=== PATIENT | male | born 1945 | race Caucasian/White ===

== ENCOUNTER → 2017-05-05 | Outpatient (CLI) | payer MEDICARE, OTHER ==
--- NOTE | 2017-05-05 13:27 | PCVCIMAG ---
EXAM: BILATERAL LOWER EXTREMITY ARTERIAL DUPLEX INDICATION: Peripheral Arterial Disease. Leg pain. FINDINGS: Right Leg: Satisfactory waveforms in the common femoral profunda femoral artery. Occlusion throughout the [place] superficial femoral artery and upper popliteal artery. 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 The mid and distal popliteal artery refills with no evidence of aneurysm. The posterior tibial arteries occluded. The anterior tibial and peroneal arteries are patent. Left Leg: Satisfactory arterial waveforms in the common femoral profunda femoral artery. Mid and upper superficial femoral artery is patent. Occlusion of the distal most superficial femoral artery and the mid and upper popliteal artery. The distal popliteal artery refills and is normal in caliber. The anterior tibial and posterior tibial arteries are patent. The peroneal artery is occluded. 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 Occlusion of the distal left superficial femoral artery and mid and upper left popliteal artery with refilling of the distal left popliteal artery. Occlusion of the right posterior tibial artery. Occlusion of the left peroneal artery. LOC:[id number]
== END | disposition home or self-care (01) ==
LOC: PCVCIMAG 10:24
PROVIDERS: ATTEND Emergency Medicine
DX: I73.9 Peripheral vascular disease, unspecified (principal); M79.605 Pain in left leg; M79.604 Pain in right leg; I70.8 Atherosclerosis of other arteries
CPT/HCPCS: 93925

== ENCOUNTER → 2017-05-16 | Outpatient (CLI) | payer MEDICARE, OTHER | END | disposition home or self-care (01) | LOC: PCVCCLINIC 15:30 | PROVIDERS: ATTEND Nuclear Medicine Nuclear Cardiology | DX: I73.9 Peripheral vascular disease, unspecified (principal); I72.4 Aneurysm of artery of lower extremity; E78.00 Pure hypercholesterolemia, unspecified; L97.919 Non-pressure chronic ulcer of unspecified part of right lower leg with unspecified severity; I25.10 Atherosclerotic heart disease of native coronary artery without angina pectoris; Z86.12 Personal history of poliomyelitis; Z87.891 Personal history of nicotine dependence; Z79.82 Long term (current) use of aspirin; Z79.899 Other long term (current) drug therapy | CPT/HCPCS: G0463 ==